=== PATIENT | female | born 1945 | race Hispanic/Latino ===

== ENCOUNTER 2017-12-03 08:45 | Emergency (ER) | payer MEDICARE, OTHER ==
[2017-12-03 08:52] VITALS: TEMP 97.8; O2SAT 98
[2017-12-03] MEDS ORDERED: Sodium Chloride 0.9% 1,000 ML IV STA (09:57)
--- NOTE | 2017-12-03 10:14 | ED PDOC ---
Upper Extremity Pain/Injury Time Seen by Provider: 12/03/17 08:45 Chief Complaint (Nursing): Upper Extremity Problem/Injury Chief Complaint (Provider): Upper Extremity Problem/Injury History Per: Patient History/Exam Limitations: no limitations Onset/Duration Of Symptoms: Days (x 1) Current Symptoms Are (Timing): Still Present Quality: "Pain" Additional Complaint(s): 72 year old female with a history of HTN, high cholesterol, hypothyroidism, and colitis presents to the ED for evaluation after a fall yesterday. Patient is accompanied by her daughter who gives additional history. She was at the [facility] yesterday when she fell over a large tree root, hitting her head, left eye and left shoulder on a railing. Patient now complains of left eye pain , swelling and left shoulder pain. . She was able to ambulate directly after. Denies LOC, SOB, blurry vision, dizziness, vomiting, headache and abdominal pain. PMD: Dr. Ed Herrera Past Medical History Reviewed: Historical Data, Nursing Documentation, Vital Signs Vital Signs: Last Vital Signs Temp 97.8 F 12/03/17 08:51 Pulse 103 H 12/03/17 08:51 Resp 21 12/03/17 08:51 BP 162/86 H 12/03/17 08:51 Pulse Ox 98 12/03/17 08:51 - Medical History PMH: Fibromyalgia, HTN, Hypercholesterolemia, Hypothyroidism - Surgical History Surgical History: Endoscopy - Family History Family History: States: Unknown Family Hx - Social History Current smoker - smoking cessation education provided: No Alcohol: < 2 Drinks/Day Drugs: Denies - Allergies Allergies/Adverse Reactions: Allergies Allergy/AdvReac Type Severity Reaction Status Date / Time erythromycin base Allergy Mild RASH Verified 12/03/17 08:55 Review of Systems ROS Statement: Except As Marked, All Systems Reviewed And Found Negative Eyes: Positive for: Pain (left), Other (left eye swelling). Negative for: Vision Change Musculoskeletal: Positive for: Shoulder Pain (left), Other (left elbow pain) Physical Exam - Reviewed Nursing Documentation Reviewed: Yes Vital Signs Reviewed: Yes - Physical Exam Appears: Positive for: Non-toxic, No Acute Distress Head Exam: Positive for: ATRAUMATIC, NORMOCEPHALIC Skin: Positive for: Normal Color, Warm, Dry Eye Exam: Positive for: EOMI, PERRL, Periorbital swelling (in the left eye accompanied by hematoma). Negative for: Other (entrapment) Neck: Positive for: Normal Cardiovascular/Chest: Positive for: Regular Rate, Rhythm Respiratory: Positive for: Normal Breath Sounds. Negative for: Respiratory Distress Pulses-Radial (L): 2+ Gastrointestinal/Abdominal: Positive for: Soft Extremity: Positive for: Capillary Refill (<2 seconds in left upper extremity), Swelling (left humerus ). Negative for: Normal ROM (limited ROM of left humerus secondary to swelling and pain in the area immediately below the shoulder), Calf Tenderness Neurologic/Psych: Positive for: Alert, Oriented (x 3). Negative for: Motor/ Sensory Deficits - Laboratory Results Result Diagrams: 12/03/17 10:26 12/03/17 10:26 - ECG O2 Sat by Pulse Oximetry: 98 (RA) Pulse Ox Interpretation: Normal Medical Decision Making Medical Decision Making: Time: 09:55 Impression: left shoulder and eye pain Initial Plan: --Head Ct --Maxillofacial Ct --CMP --CBC with differentials --Morphine 3 mg IV --NS IV 250 mls/hr --Left humerus x-ray --Left shoulder x-ray Time: 11:[address] FINDINGS: NASAL BONES: No fracture identified. ORBITS: While there is no fracture identified, there is prominent left infraorbital edema/ hematoma with mild extension into the lateral periorbital soft tissues. No postseptal pathology is appreciable grossly with the left orbit otherwise intact. Unremarkable right orbit. PARANASAL SINUSES/ MASTOIDS: Clear. MAXILLA: No fracture identified. Mild left malar soft tissue edema is appreciated. Unremarkable right maxilla. MANDIBLE/ TEMPOROMANDIBULAR JOINTS: Unremarkable. SKULL BASE: Unremarkable. TEMPORAL BONES: Middle ears and mastoid grossly unremarkable. OTHER FINDINGS: None. IMPRESSION: No fracture identified throughout the maxillofacial CT exam. Prominent left infraorbital soft tissue edema/ hematoma is identified mildly extending into lateral periorbital soft tissues, preseptal only. Nor fracture identified bilaterally. Head CT FINDINGS: HEMORRHAGE: No intracranial hemorrhage. BRAIN: Good corticomedullary differentiation is seen. There is limited periventricular white matter lucency compatible with chronic microangiopathy. No suspicious extra-axial fluid collection is identified and the midline brain anatomy appears grossly nonfocal as imaged. There is no mass effect throughout. VENTRICLES: Unremarkable. No hydrocephalus. CALVARIUM: No destructive bony lesion or displaced fracture identified including through the skullbase. PARANASAL SINUSES: Unremarkable as visualized. No significant inflammatory changes. MASTOID AIR CELLS: Unremarkable as visualized. No inflammatory changes. OTHER FINDINGS: Prominent left infraorbital and mild left lateral periorbital hematoma. IMPRESSION: No acute intracranial findings are identified at this time. No displaced fracture of the calvarium or skullbase identified either. Prominent left infraorbital/malar and mild left lateral orbital soft tissue hematoma appreciated. Left shoulder x-ray FINDINGS: BONES: All will pole impacted comminuted fracture left humeral head with avulsion of the greater tuberosity. JOINTS: Normal. Glenohumeral and acromioclavicular joints preserved. No osteoarthritis. SOFT TISSUES: Normal. OTHER FINDINGS: None. IMPRESSION: Acute impacted left humeral head fracture. Preserved glenohumeral relationship. Left humerus x-ray FINDINGS: BONES: Known humeral head fracture. This has been described in greater detail in shoulder radiographs. SOFT TISSUES: Soft tissue swelling attests to the acuity of the fracture. OTHER FINDINGS: None. IMPRESSION: Acute and incompletely visualize impacted left humeral head fracture. Time: 12:56 --Due to low potassium levels, patient will be given 20 meq of potassium chloride. --call center representative orthopedic, Dr. Lai will be called as a consult. Time: 13:04 --Dr. Lai is aware of the case, going to review imaging and will inform me of further plan. Time: 13:50 --Dr. Lai recommends to place patient in sling and advise to follow up in his office. relayed this to pt and daughter at bedside. sling placed. normal neurovascular exam post sling placement. Time: 14:10 --Patient medically cleared for discharge home, advised orthopedic followup. pt agreeable to plan. pt states that she has tramadol at home for pain. dc with daughter. Scribe Attestation: Documented by Dorothy Benites, acting as a scribe for Jose Roberto Trevizo MD Provider Scribe Attestation: All medical record entries made by the Scribe were at my direction and personally dictated by me. I have reviewed the chart and agree that the record accurately reflects my personal performance of the history, physical exam, medical decision making, and the department course for this patient. I have also personally directed, reviewed, and agree with the discharge instructions and disposition. Disposition - Clinical Impression Clinical Impression: Humeral fracture - Patient ED Disposition Is Patient to be Admitted: No Counseled Patient/Family Regarding: Studies Performed, Diagnosis, Need For Followup - Disposition Referrals: Otorhinolaryngologist Service [Outside] Darius Lai MD [Staff Provider] - Disposition: Routine/Home Disposition Time: 13:10 Condition: IMPROVED Additional Instructions: follow up with Dr Lai of orthopedics within 3 days take tramadol as needed for pain. return to the ED with any worsening or concerning symptoms Instructions: Upper Arm Fracture Forms: [employer] (Mauritanian)
[2017-12-03 10:36] LABS: BASO # 0.1 K/uL (0.0-0.2); BASO % 1.1 % (0.0-2.0); EOS # 0.1 K/uL (0.0-0.7); EOS % 1.4 % (0.0-4.0); HEMOGLOBIN 12.6 g/dL (12.0-16.0); LYMPH # 1.6 K/uL (1.0-4.3); MEAN CELL VOLUME 97.7 fl (81.0-99.0); MEAN CORPUSCULAR HEMOGLOBIN 33.7 pg (27.0-31.0); MEAN CORPUSCULAR HGB CONC 34.5 g/dL (33.0-37.0); MEAN PLATELET VOLUME 8.7 fl (7.2-11.7); MONO # 0.9 K/uL (0.0-0.8); MONO % 11.1 % (0.0-10.0); NEUT # 5.3 K/uL (1.8-7.0); NEUT % 66.4 % (50.0-75.0); NRBC % 0.1 % (0.0-0.0); RBC 3.75 Mil/uL (3.80-5.20); RED CELL DISTRIBUTION WIDTH 15.1 % (11.5-14.5); WHITE BLOOD COUNT 7.9 K/uL (4.8-10.8)
[2017-12-03] MEDS ORDERED: Morphine 4 MG/ML VIAL ONE (10:44)
[2017-12-03 10:47] LABS: ALB/GLOB RATIO 1.4 (1.0-2.1); ALBUMIN 4.2 g/dL (3.5-5.0); ALT/SGPT 44 U/L (9-52); AST/SGOT 39 U/L (14-36); BLOOD UREA NITROGEN 17 mg/dl (7-17); CALCIUM 9.5 mg/dL (8.4-10.2); GFR AFRICAN-AMERICAN > 60; GFR NON-AFRICAN AMERICAN > 60
--- NOTE | 2017-12-03 11:12 | CT ---
PROCEDURE: CT HEAD WITHOUT CONTRAST. HISTORY: fall COMPARISON: None available. TECHNIQUE: Axial computed tomography images were obtained through the head/brain without intravenous contrast. Radiation dose: Total exam DLP = 801.57 mGy-cm. This CT exam was performed using one or more of the following dose reduction techniques: Automated exposure control, adjustment of the mA and/or kV according to patient size, and/or use of iterative reconstruction technique. FINDINGS: HEMORRHAGE: No intracranial hemorrhage. BRAIN: Good corticomedullary differentiation is seen. There is limited periventricular white matter lucency compatible with chronic microangiopathy. No suspicious extra-axial fluid collection is identified and the midline brain anatomy appears grossly nonfocal as imaged. There is no mass effect throughout. VENTRICLES: Unremarkable. No hydrocephalus. CALVARIUM: No destructive bony lesion or displaced fracture identified including through the skullbase. PARANASAL SINUSES: Unremarkable as visualized. No significant inflammatory changes. MASTOID AIR CELLS: Unremarkable as visualized. No inflammatory changes. OTHER FINDINGS: Prominent left infraorbital and mild left lateral periorbital hematoma. IMPRESSION: No acute intracranial findings are identified at this time. No displaced fracture of the calvarium or skullbase identified either. Prominent left infraorbital/malar and mild left lateral orbital soft tissue hematoma appreciated.
--- NOTE | 2017-12-03 11:20 | CT ---
PROCEDURE: CT MAXILLOFACIAL BONES WITHOUT CONTRAST HISTORY: fall bruising over left periorbital area COMPARISON: None TECHNIQUE: Contiguous axial CT images of the maxillofacial bones were obtained. Coronal and sagittal reformats were generated. Radiation dose: Total exam DLP = 783.5 mGy-cm. This CT exam was performed using one or more of the following dose reduction techniques: Automated exposure control, adjustment of the mA and/or kV according to patient size, and/or use of iterative reconstruction technique. FINDINGS: NASAL BONES: No fracture identified. ORBITS: While there is no fracture identified, there is prominent left infraorbital edema/ hematoma with mild extension into the lateral periorbital soft tissues. No postseptal pathology is appreciable grossly with the left orbit otherwise intact. Unremarkable right orbit. PARANASAL SINUSES/ MASTOIDS: Clear. MAXILLA: No fracture identified. Mild left malar soft tissue edema is appreciated. Unremarkable right maxilla. MANDIBLE/ TEMPOROMANDIBULAR JOINTS: Unremarkable. SKULL BASE: Unremarkable. TEMPORAL BONES: Middle ears and mastoid grossly unremarkable. OTHER FINDINGS: None. IMPRESSION: No fracture identified throughout the maxillofacial CT exam. Prominent left infraorbital soft tissue edema/ hematoma is identified mildly extending into lateral periorbital soft tissues, preseptal only. Nor fracture identified bilaterally.
--- NOTE | 2017-12-03 11:32 | RAD ---
PROCEDURE: Radiographs of the Left Shoulder HISTORY: left shoulder pain COMPARISON: No prior. FINDINGS: BONES: All will pole impacted comminuted fracture left humeral head with avulsion of the greater tuberosity. JOINTS: Normal. Glenohumeral and acromioclavicular joints preserved. No osteoarthritis. SOFT TISSUES: Normal. OTHER FINDINGS: None. IMPRESSION: Acute impacted left humeral head fracture. Preserved glenohumeral relationship.
--- NOTE | 2017-12-03 11:35 | RAD ---
PROCEDURE: Radiographs of the left humerus. HISTORY: left arm pain sp fall yesterday COMPARISON: December 03, 2017. FINDINGS: BONES: Known humeral head fracture. This has been described in greater detail in shoulder radiographs. SOFT TISSUES: Soft tissue swelling attests to the acuity of the fracture. OTHER FINDINGS: None. IMPRESSION: Acute and incompletely visualize impacted left humeral head fracture.
[2017-12-03] MEDS ORDERED: Potassium Chloride 20 mEq ER Tab PO ONE ×2 (12:55→13:52)
[2017-12-03 14:31] VITALS: BP 152/82; PULSE 91; RESP 18
== END 2017-12-03 14:16 | disposition home or self-care (01) ==
LOC: H.ER 08:45
DX: S42.352A Displaced comminuted fracture of shaft of humerus, left arm, initial encounter for closed fracture (principal); W18.00XA Striking against unspecified object with subsequent fall, initial encounter; I10 Essential (primary) hypertension; E03.9 Hypothyroidism, unspecified; Z88.1 Allergy status to other antibiotic agents
CPT/HCPCS: 29240; 70450; 70486; 73030; 73060; 80053; 85025; 96374; 99285; J2270; J7030